=== PATIENT | female | born 1945 | race Caucasian/White ===

== ENCOUNTER 2017-03-09 20:13 | Emergency (ER) | payer MEDICARE ==
[2017-03-09 20:40] VITALS: BP 148/72
--- NOTE | 2017-03-09 22:06 | RADIOLOGY REPORT (SQ) ---
EXAM DESCRIPTION: SHOULDER RIGHT 2 OR MORE VIEWS COMPLETED DATE/TIME: 03/09/2017 9:57 pm REASON FOR STUDY: Pain s/p fall COMPARISON: None. NUMBER OF VIEWS: Three views. TECHNIQUE: AP and Y-view images acquired of the right shoulder. LIMITATIONS: None. FINDINGS: MINERALIZATION: Normal. BONES: Comminuted fracture of the proximal humerus is identified. There is angulation and some overr iding of the fracture fragments. VISUALIZED LUNGS AND RIBS: No pneumothorax. No rib fracture. SOFT TISSUES: No radiopaque foreign body. OTHER: No other significant finding. IMPRESSION: Comminuted fracture of the proximal humerus. TECHNICAL DOCUMENTATION: JOB ID: [id number]- All Rights Reserved
[2017-03-09] MEDS ORDERED: HYDROCODONE/ACETAMINOPHEN 5-325 MG 6 TAB/DSPK PO PRN (22:08)
--- NOTE | 2017-03-09 22:08 | ER Document Report ---
ED Fall - General Chief Complaint: Fall, L eye pain, R shoulder pain Stated Complaint: FALL/EYE PAIN Time Seen by Provider: 03/09/17 21:40 Mode of Arrival: Wheelchair Information source: Patient TRAVEL OUTSIDE OF THE [place] IN LAST 30 DAYS: No - HPI Patient complains to provider of: trip and fall Occurred: Just prior to arrival Where: Home Context: Tripped Associated symptoms: None Location of injury/pain: Face, Shoulder Quality of pain: Achy Severity: Moderate Pain Level: 4 Notes: Patient is a 71-year-old female who is visiting from [place], staying at a [place] house, who tripped and fell over the floor, landing on her left face and causing injury to her right arm, she denies any loss of consciousness, no numbness or tingling to extremities, no nausea or vomiting, no vision changes, she complains of pain to the right shoulder with limited range of motion - Related data Allergies/Adverse Reactions: No Known Allergies Allergy (Unverified 03/09/17 20:40) Past Medical History - General Information source: Patient - Social History Smoking Status: Never Smoker Family History: Reviewed & Not Pertinent Renal/ Medical History: Denies: Hx Peritoneal Dialysis Review of Systems - Review of Systems Constitutional: No symptoms reported EENT: No symptoms reported Cardiovascular: No symptoms reported Respiratory: No symptoms reported Gastrointestinal: No symptoms reported Genitourinary: No symptoms reported Female Genitourinary: No symptoms reported Musculoskeletal: See HPI Skin: See HPI Hematologic/Lymphatic: No symptoms reported Neurological/Psychological: No symptoms reported -: Yes All other systems reviewed and negative Physical Exam - Vital signs Vitals: Temp Pulse Resp BP Pulse Ox 97.7 F 61 18 148/72 H 96 03/09/17 20:38 03/09/17 20:38 03/09/17 20:38 03/09/17 20:38 03/09/17 20:38 Interpretation: Normal - General General appearance: Appears well, Alert In distress: None - HEENT Head: Normocephalic, Ecchymosis - Left periorbital ecchymosis with mild swelling , 1 cm laceration just lateral to the left orbit Eyes: Normal Conjunctiva: Normal Extraocular movements intact: Yes Eyelashes: Normal Pupils: PERRL Ears: Normal External canal: Normal Tympanic membrane: Normal Sinus: Normal Nasal: Normal Mouth/Lips: Normal Mucous membranes: Normal Neck: Normal - Respiratory Respiratory status: No respiratory distress Chest status: Nontender Breath sounds: Normal Chest palpation: Normal - Cardiovascular Rhythm: Regular Heart sounds: Normal auscultation Murmur: No - Abdominal Inspection: Normal Distension: No distension Bowel sounds: Normal Tenderness: Nontender Organomegaly: No organomegaly - Back Back: Normal, Nontender - Extremities General upper extremity: Normal color, Normal temperature General lower extremity: Normal inspection, Nontender, Normal color, Normal ROM , Normal temperature, Normal weight bearing. No: Damian's sign Shoulder: Tender - Right shoulder to palpate over proximal humerus with slight deformity and swelling, limited range of motion due to pain, distal sensation and motor is intact with 2+ radial pulses and brisk capillary refill - Neurological Neuro grossly intact: Yes Cognition: Normal Orientation: AAOx4 John Coma Scale Eye Opening: Spontaneous John Coma Scale Verbal: Oriented Remington Coma Scale Motor: Obeys Commands Remington Coma Scale Total: 15 Speech: Normal Motor strength normal: LUE, RUE, LLE, RLE Sensory: Normal - Psychological Associated symptoms: Normal affect, Normal mood - Skin Skin Temperature: Warm Skin Moisture: Dry Skin Color: Normal Course - Re-evaluation Re-evalutation: 03/10/17 00:34 Was placed in a sling and provided with pain medication as well as stool softeners as 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 when she had knee surgery, wound to the left face was repaired using Dermabond, patient and family members were given instructions for follow-up and advised to return if symptoms worsen, patient and family members acknowledge understanding and agreement with this plan - Vital Signs Vital signs: Temp Pulse Resp BP Pulse Ox 97.7 F 61 18 148/72 H 96 03/09/17 20:38 03/09/17 20:38 03/09/17 20:38 03/09/17 20:38 03/09/17 20:38 - Diagnostic Test Radiology reviewed: Image reviewed, Reports reviewed Procedures - Immobilization Right Shoulder Time completed: 00:35 Pre-Proc Neuro Vasc Exam: Normal Immobilizer type: Sling Performed by: PCT Post-Proc Neuro Vasc Exam: Normal Alignment checked and good: Yes - Laceration/Wound Repair Left Face Time completed: 00:35 Wound length (cm): 1 Wound's Depth, Shape: Linear Laceration pre-procedure: Sterile PPE donned, Chloraprep applied Wound explored: Clean Wound Repaired With: Dermabond Adult Head Front/Back picture: 1 - 1 Centimeter laceration Discharge - Discharge Clinical Impression: Head injury Qualifiers: Encounter type: initial encounter Qualified Code(s): S09.90XA - Unspecified injury of head, initial encounter Facial laceration Qualifiers: Encounter type: initial encounter Qualified Code(s): S01.81XA - Laceration without foreign body of other part of head, initial encounter Proximal humerus fracture Qualifiers: Encounter type: initial encounter Fracture type: closed Fracture morphology: unspecified fracture morphology Laterality: right Qualified Code(s): S42.201A - Unspecified fracture of upper end of right humerus, initial encounter for closed fracture Condition: Stable Disposition: HOME, SELF-CARE Instructions: Oral Narcotic Medication ([facility]), Fracture Proximal Humerus, Temporary Sling ([facility]), Ice & Elevation ([facility]), Head Injury Precautions ([facility]), Skin Adhesive Closure ([facility]), Facial Laceration ([facility]) Additional Instructions: Follow up with your primary care provider and an orthopedic surgeon in one to 2 days. Return to the emergency room immediately if symptoms worsen or any additional concerns. Ice and elevate the affected extremity. Prescriptions: Docusate Sodium [Colace 100 mg Capsule] 100 mg PO BID #60 capsule Hydrocodone/Acetaminophen [Hydrocodon-Acetaminophen 5-325] 1 each PO Q6 #14 tablet Polyethylene Glycol 3350 [Miralax Powder 17 Gm/Packet] 17 gm PO DAILY #30 powd.pack
== END 2017-03-09 22:30 | disposition home or self-care (01) ==
LOC: ER 20:13
DX: S42.201A Unspecified fracture of upper end of right humerus, initial encounter for closed fracture (principal); S01.112A Laceration without foreign body of left eyelid and periocular area, initial encounter; W01.0XXA Fall on same level from slipping, tripping and stumbling without subsequent striking against object, initial encounter; Y92.009 Unspecified place in unspecified non-institutional (private) residence as the place of occurrence of the external cause; M25.511 Pain in right shoulder
CPT/HCPCS: 99283; 73030; A9270